=== PATIENT | male | born 1975 | race Caucasian/White ===

== ENCOUNTER → 2021-09-15 | Day surgery (SDC) | payer BC ==
[~2021-09-15] VITALS: Ht 182.9 cm; Wt 77.0 kg
[~2021-09-15] MED LIST: CHOL5000 PO; GLYCOPYRROLATE 1 MG/5 ML VIAL. ONE; IV RINGERS,LACTATED 1000ML 1,000 ML IV ONE; PROPOFOL 10 MG/ML (20ML) VIAL. IV ONE
--- NOTE | 2021-09-15 07:46 | CONS ---
DATE OF CONSULTATION: 09/15/2021 UPDATED HISTORY AND PHYSICAL REFERRING PHYSICIAN: Herbert Shultz MD. REASON FOR CONSULTATION: Family history of colon cancer. HISTORY OF PRESENT ILLNESS: A 46-year-old male with past medical history significant for asthma, is seen for interval colon exam. Bowel habits are regular with a normal pattern, 2 stools per day. No melena and/or hematochezia. There has been no change in weight or appetite and prior colonoscopies have been unrevealing for polyps or cancers. Weight and appetite are stable. He is otherwise without additional complaints. PAST MEDICAL HISTORY: Asthma. ALLERGIES: None. MEDICATIONS: Vitamin D 1 daily. PAST SURGICAL HISTORY: Status post appendectomy and vasectomy. FAMILY HISTORY: Significant for colon cancer with father. Diabetes with an uncle. Hypertension with his mother. REVIEW OF SYSTEMS: Per records. PHYSICAL EXAMINATION: GENERAL: Reveals a well-nourished, well-developed male who is alert, cooperative, in no acute distress. VITAL SIGNS: Pulse is 56, blood pressure is 126/77. LUNGS: Clear. CARDIOVASCULAR: Reveals an S1, S2, without S3, S4 or appreciable murmur. ABDOMEN: Reveals a soft abdomen, normal bowel sounds, without appreciable hepatosplenomegaly. EXTREMITIES: Reveals no cyanosis, clubbing or edema. IMPRESSION AND PLAN: Family history of colon cancer. Risks and benefits of procedure have been previously discussed. The patient is willing to proceed at this time. GREER THAO: Marlee TID: [id number]
[2021-09-15 07:54] VITALS: BP 112/58
== END | disposition home or self-care (01) ==
LOC: ENDOS 06:10
PROVIDERS: ATTEND Internal Medicine Gastroenterology
DX: Z12.11 Encounter for screening for malignant neoplasm of colon (principal); K64.0 First degree hemorrhoids; K63.89 Other specified diseases of intestine; J45.909 Unspecified asthma, uncomplicated; Z80.0 Family history of malignant neoplasm of digestive organs; Z79.899 Other long term (current) drug therapy; Z98.890 Other specified postprocedural states; Z72.89 Other problems related to lifestyle; Z82.49 Family history of ischemic heart disease and other diseases of the circulatory system; Z83.3 Family history of diabetes mellitus
CPT/HCPCS: 45378; J2704; J3490